=== PATIENT | female | born 1980 | race Caucasian/White ===

== ENCOUNTER → 2016-12-01 | Outpatient (CLI) | payer BC | END | disposition home or self-care (01) | LOC: C.PAPS 13:33 | PROVIDERS: ATTEND Obstetrics & Gynecology | DX: Z01.419 Encounter for gynecological examination (general) (routine) without abnormal findings (principal) ==

== ENCOUNTER → 2017-08-28 | Outpatient (CLI) | payer BC | END | disposition home or self-care (01) | LOC: C.LAB1850 10:45 | PROVIDERS: ATTEND Obstetrics & Gynecology | DX: Z33.1 Pregnant state, incidental (principal); Z34.90 Encounter for supervision of normal pregnancy, unspecified, unspecified trimester ==

== ENCOUNTER → 2017-10-16 | Outpatient (CLI) | payer BC ==
[2017-10-16 13:33] LABS: GTGD 50 Grams
[2017-10-19 15:44] LABS: AFP MULTIPLE OF MEDIAN 0.91; AFPTS GESTATIONAL AGE 15.7 WEEKS; AFPTS INSULIN DEP DIABETIC? NO; AFPTS MATERNAL WT 162 LBS; ALPHA-FETOPROTEIN RACE CAUCASIAN=W; CIGARETTE SMOKER? NOT PROVIDED; EDD DETERMINED BY ULTRASOUND; HISTORY OF NTD NO; REPEAT SAMPLE? NO
== END | disposition home or self-care (01) ==
LOC: C.LAB1850 10:58
PROVIDERS: ATTEND Obstetrics & Gynecology
DX: Z34.82 Encounter for supervision of other normal pregnancy, second trimester (principal)

== ENCOUNTER → 2018-01-10 | Outpatient (CLI) | payer OTHER | END | disposition home or self-care (01) | LOC: C.LABSPEC 11:34 | PROVIDERS: ATTEND Obstetrics & Gynecology | DX: Z34.83 Encounter for supervision of other normal pregnancy, third trimester (principal) ==

== ENCOUNTER → 2018-01-10 | Outpatient (CLI) | payer OTHER ==
[2018-01-10 12:22] LABS: HEMATOCRIT 33.6 % (37-47); HEMOGLOBIN 11.7 g/dL (12.0-16.0)
== END | disposition home or self-care (01) ==
LOC: C.LAB1850 09:47
PROVIDERS: ATTEND Obstetrics & Gynecology
DX: Z34.83 Encounter for supervision of other normal pregnancy, third trimester (principal)

== ENCOUNTER → 2018-03-07 | Outpatient (CLI) | payer OTHER | END | disposition home or self-care (01) | LOC: C.LABSPEC 10:49 | PROVIDERS: ATTEND Obstetrics & Gynecology | DX: O09.523 Supervision of elderly multigravida, third trimester (principal) ==

== ENCOUNTER 2018-04-08 19:37 | Outpatient (CLI) | payer OTHER ==
[~2018-04-08] VITALS: Ht 175.3 cm; Wt 90.0 kg
[2018-04-08] MEDS ORDERED: PRENTAB26 PO (20:31)
[2018-04-08 20:32] VITALS: Ht 175.3 cm; Wt 90.0 kg
[2018-04-11] MEDS ORDERED: OXYC-57 PO (17:18)
[2018-04-11] MEDS ORDERED: MTR600X PO (17:18)
[2018-04-12] MEDS ORDERED: OXYC-57 PO (11:23)
== END 2018-04-08 21:25 | disposition home or self-care (01) ==
LOC: C.OPB 19:37 → C.LD 19:37 → C.OPB 21:25
PROVIDERS: ATTEND Obstetrics & Gynecology
DX: O48.0 Post-term pregnancy (principal); O09.523 Supervision of elderly multigravida, third trimester; O34.43 Maternal care for other abnormalities of cervix, third trimester; Z3A.41 41 weeks gestation of pregnancy

== ENCOUNTER 2020-06-11 07:01 | Inpatient (IN) ==
--- NOTE | 2020-06-10 17:02 | History & Physical Report ---
Date of Service June 10, 2020 Assessment & Plan (1) Supervision of elderly multigravida: IUP at 39 weeks with prior C/S done emergently at 41 weeks because of bradycardia & brow presentation requesting repeat C/S . The procedure and it's risks were discussed in detail with the patient and her and all questions were answered to their satisfaction. History of Present Illness Primary Care Provider: Nimo Michel MD Patient is a 40 yo white female who presents at 39 weeks for repeat C/S. she had a normal with her first then an emergency C/S with her second baby because of brow position, and subsequent bradycardia. She needed a blood transfusion after the section so would like to do a repeat C/S electively. is complicated by + Rosalba antibodies but her is negative for [place]. Growth scans show LGA baby with 97%tile at 36 weeks. Her other babies were also large. NST's have been reactive. Allergies Allergy/AdvReac Type Severity Reaction Status Date / Time No Known Drug Allergies Allergy Verified 06/10/20 09:37 Home Medications Home Medications Medication Instructions Recorded Confirmed Type prenat.vits,mark,ees-[id number] 1 tab PO QAM 07/15/19 06/10/20 History Patient History Medical History Asthma childhood Encounter for anatomic survey Surgical History History of tooth extraction wisdom teeth Hx of section had blood transfusion and platelets 2018 now has positive antibodies Family History Mother FH: malignant neoplasm of thyroid Father Transient ischemic attack Uncle Diabetes Grandmother Breast cancer QA LEAD Ovarian cancer QA LEAD Denies family history of Colorectal cancer Social History Smoking Status: Never smoker Second Hand Exposure: No; Hx Alcohol Use: No Hx Substance Use: No Preferred Language: Frisian Communication Ability: Effective Water Server Required: No Beliefs That Will Affect Care: None marital status: marital status details: Casey López (40) [phone] Current Living Situation: Spouse Current Living Situation Comment: lives with spouse, 2 childen, no pets current occupational status: employed 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 Feels Safe at Home: Yes Childhood Exposure to Second-Hand Smoke: No caffeine: Yes Dental Care, Regularly: Yes Physical Activity Frequency: 3-4 Times per Week Seatbelt Use: always Sunscreen Use: Yes Review of Systems All systems reviewed & are unremarkable except as noted in HPI & below Physical Exam Constitutional: WD/WN, vitals as above Respiratory: normal respiratory effort, lungs clear to auscultation Cardiovascular: RRR, no murmur, no edema Gastrointestinal (Abdomen): normal bowel sounds, soft, nontender, no hepatosplenomegaly Psychiatric: A+Ox3, euthymic affect Genitourinary: OB Exam Abdomen: + fundal height (term), + vertex and + estimated weight (8-9 pounds) OB Exam Monitor Tracing: + external FHT monitor used, + external uterine monitor used, + category I and + normal FHT variability Coding Level of Care Code None Diagnoses Supervision of elderly multigravida O09.529
[~2020-06-11 07:01] MED LIST: CEFAZOLIN 2000MG 2,000 MG/15 ML SYR IV SCH
[2020-06-11] MEDS ORDERED: LACTATED RINGER'S 1,000 ML IV SCH ×3 (07:15→12:14)
[2020-06-11 07:19] LABS: Basophils # (auto) 0.01 K/uL (0-0.2); Basophils % (auto) 0.1 %; Eosinophils # (auto) 0.03 K/uL (0-0.5); Eosinophils % (auto) 0.4 %; Hematocrit (blood only) 33.9 % (37-47); Hemoglobin 11.1 g/dL (12.0-16.0); Immature Granulocytes # (auto) 0.02 K/uL (0.00-0.02); Immature Granulocytes % (auto) 0.3 %; Lymphocytes # (auto) 1.47 K/uL (1.2-3.4); Lymphocytes % (auto) 21.5 %; Mean Corpuscular Hemoglobin 29.2 pg (25-34); Mean Corpuscular Volume 89.2 fL (80-100); Mean Platelet Volume 10.6 fL (7.4-10.4); Monocytes # (auto) 0.51 K/uL (0.11-0.59); Monocytes % (auto) 7.4 %; Neutrophils # (auto) 4.81 K/uL (1.4-6.5); Neutrophils % (auto) 70.3 %; Platelet Count 112 K/uL (130-400); RDW Coefficient of Variation 13.6 % (11.5-14.5); RDW Standard Deviation 44.3 fL (36.4-46.3); White Blood Count 6.85 K/uL (4.8-10.8)
[2020-06-11 07:22] LABS: Mean Corpuscular Hgb Conc 32.7 g/dL (32-36)
[2020-06-11] MEDS ORDERED: CITRIC ACID/SODIUM CITRATE 15 ML UDC PO SCH (09:33)
[2020-06-11] MEDS ORDERED: OXYTOCIN 10 UNITS/ML VIAL ONE (10:37)
[2020-06-11] MEDS ORDERED: KETOROLAC 30 MG/ML VIAL ONE (10:37)
[2020-06-11] MEDS ORDERED: fentaNYL citrate 100 MCG/2 ML VIAL ONE (10:37)
[2020-06-11] MEDS ORDERED: ONDANSETRON INJ 2 MG/ML 2 ML VIAL ONE (10:37)
[2020-06-11] MEDS ORDERED: MoRPHine SULFATE PF 1 MG/ML 10 ML AMP/VIAL ONE (10:37)
[2020-06-11] MEDS ORDERED: LACTATED RINGER'S 500 ML IV PRN (11:24)
[2020-06-11] MEDS ORDERED: PROMETHAZINE HCL 6.25 MG in SODIUM CHLORIDE 0.9% 50 ML IV PRN (11:24)
[2020-06-11] MEDS ORDERED: MoRPHine SULFATE PF 1 MG/ML 10 ML AMP/VIAL INT SPINAL ONE (11:24)
[2020-06-11] MEDS ORDERED: NALOXONE HCL 0.08 MG in SYRINGE 1.8 ML IV PRN (11:24)
[2020-06-11] MEDS ORDERED: ONDANSETRON INJ 2 MG/ML 2 ML VIAL IV PRN (11:24)
[2020-06-11] MEDS ORDERED: HYDROmorphone INJ 0.5 MG/0.5 ML SYR IV PRN (11:24)
[2020-06-11] MEDS ORDERED: MoRPHine SULFATE 2 MG/ML CARP IV PRN (11:24)
[2020-06-11] MEDS ORDERED: NALOXONE HCL 0.4 MG/1 ML VIAL/CARP IV PRN (11:24)
[2020-06-11] MEDS ORDERED: NALOXONE HCL 1 MG in SODIUM CHLORIDE 0.9% 1000ML 1,000 ML IV PRN (11:24)
[2020-06-11] MEDS ORDERED: DiphenhydrAMINE HCL 50 MG/ML VIAL IV PRN (11:24)
[2020-06-11] MEDS ORDERED: ePHEDrine sulfate 50 MG/ML AMP IV PRN (11:24)
--- NOTE | 2020-06-11 11:24 | Anesthesiology Consultation ---
Date of Service June 11, 2020 Assessment & Plan (1) Encounter for pre-operative examination: Chart Review Chart Review: Acceptable Risk for Surgery and Patient NOT seen in Pre Admission Testing Consults Requested none ASA ASA2 Proposed Anesthesia Anesthesia Type: Spinal (+intrathecal narcotics) Risk / Benefits Reviewed With: PT / POA / Parent / Guardian, Accepts Plan and Informed Consent Obtained History Surgery Operation Date: 06/11/20 08:50 Proposed Procedures p Section in LD - Lorena Schaefer MD, FACOG Height/Weight Height: 5 ft 9 in Weight: 87.543 kg Allergies Allergy/AdvReac Type Severity Reaction Status Date / Time No Known Drug Allergies Allergy Unknown Verified 06/11/20 07:23 Medications Home Medications Medication Instructions Recorded Confirmed Last Taken prenat.vits,mark,enw-zvep-zhmvt 1 tab PO QAM 07/15/19 06/11/20 06/10/20 Active Medications Generic Name Dose Route Start Last Admin Trade Name Freq PRN Reason Stop Dose Admin Cefazolin Sodium 2,000 mg in 15 mls @ 3.75 mls/min 06/11/20 06:00 06/11/20 10:36 Ancef 2000mg IV 06/11/20 15:00 3.75 mls/min PREOP MATT Administration Lactated Ringer's 1,000 mls @ 125 mls/hr 06/11/20 09:15 06/11/20 09:00 Lr IV 07/11/20 09:14 125 mls/hr .Q8H MATT Administration NPO Date Last Intake of Fluids: 06/10/20 Time Last Intake of Fluids: 22:30 Date Last Intake of Solids: 06/10/20 Time Last Intake of Solids: 19:00 Past Medical History Medical History Asthma childhood Encounter for anatomic survey Exercise / Class Metabolic Activity II 4-5 Yardwork/Stairs/Walk up hill Past Family History Family History Mother FH: malignant neoplasm of thyroid Father Transient ischemic attack Uncle Diabetes Grandmother Breast cancer [employer] Ovarian cancer [employer] SUPERVISOR Denies family history of Colorectal cancer Past Surgical History Surgical History H/O reconstruction of anterior cruciate ligament tear History of tooth extraction wisdom teeth Hx of section had blood transfusion and platelets 2018 now has positive antibodies Past Anesthesia History No Hx of Anesthesia Complications and No Family Hx of Anesthesia Complications History of PONV No Hx of PONV and No Hx of Motion Sickness Social History Smoking Status: Never smoker Do You Dip or Chew Tobacco: No Hx Alcohol Use: No Hx Substance Use: No substance use type: does not use Physical Exam Vital Signs Last Vital Signs Temp 37 C 06/11/20 07:30 Pulse 61 06/11/20 08:30 Resp 18 06/11/20 07:30 BP 99/67 L 06/11/20 08:30 ENMT Mouth: no dentition abnormality Thyromental Distance: > or= 3.5 Finger Breadths Mallampati Class: II Neck normal visual inspection Respiratory normal respiratory effort Auscultation: lungs clear to auscultation bilaterally Cardiovascular Rate/Rhythm: regular rate and regular rhythm Psychiatric Orientation: alert Testing Laboratory Results 06/11/20 07:10 Blood Type O Positive 06/11/20 07:10 Antibody Screen POSITIVE A 06/11/20 07:10
[2020-06-11] MEDS ORDERED: SODIUM CHLORIDE 0.9% 1000ML 1,000 ML IV SCH (11:30)
[2020-06-11] MEDS ORDERED: NO NARCOTICS OR SEDATIVES SCH (11:30)
[2020-06-11] MEDS ORDERED: DC INTRASPINAL MORPHINE SCH (11:30)
--- NOTE | 2020-06-11 11:44 | Post Operative Brief Note ---
PG Immediate Post Op with CF Date of Surgery June 11, 2020 Pre & Post Diagnosis Operation Date: 06/11/20 08:50 Pre-Op Diagnosis: Intrauterine at 39 4/7 weeks gestation. Previous section, desires sterilization Post-Op Diagnosis: same I identified the patient and participated in the time-out.: Yes Procedure Operation Date: 06/11/20 08:50 Actual Procedures p Repeat section with tubal ligation for living male child at 1107(Bilateral) - Lorena Schaefer MD, FACOG Surgeon Lorena Schaefer MD, FACOG Program Advisor Misa Horvath MD & Rasheed Stanley MD Estimated Blood Loss 500 Findings Consistent with Post-Op Diagnosis Specimens Specimen Description: portions of fallopian tubes bilaterally Drains Martinez Catheter (martinez inserted following spinal without difficulty. Martinez draining clear yellow urine and urine output to be monitored by anesthesia intr aoperatively) Anesthesia Type Spinal Disposition Accompanied Patient To Recovery: Yes Disposition: L&D
[2020-06-11] MEDS ORDERED: HYDROCORTISONE ACETATE 25 MG SUPP PR PRN (12:14)
[2020-06-11] MEDS ORDERED: DIPHTHERIA/TETANUS/PERTUSSIS 0.5 ML SYR/VIAL IM ONE (12:14)
[2020-06-11] MEDS ORDERED: SUPERCREAM 0.870% 15 GM JAR EXT PRN (12:14)
[2020-06-11] MEDS ORDERED: SENNA 8.6 MG TAB PO PRN (12:14)
[2020-06-11] MEDS ORDERED: BENZOCAINE 20% AER SPR 82.5 GM CAN EXT PRN (12:14)
[2020-06-11] MEDS: OXYTOCIN 20 UNITS in LACTATED RINGER'S 1,000 ML IV SCH ×2 (12:36→20:37)
--- NOTE | 2020-06-11 13:02 | History & Physical Bridge Note ---
Date of Service June 11, 2020 History & Physical Bridge Note I have examined the patient, reviewed the History & Physical and in the interval since the performance of the History & Physical I have noted the following changes of clinical significance: no changes noted
--- NOTE | 2020-06-11 15:46 | Anesthesiology Progress Note ---
Date of Service June 11, 2020 Anesthesia Post Procedure Vital Signs Vital Signs: Temp Pulse Resp BP Pulse Ox 06/11/20 15:44 62 98 06/11/20 15:43 58 L 92 06/11/20 15:39 58 L 100 06/11/20 15:34 57 L 100 06/11/20 15:29 52 L 100 06/11/20 15:24 52 L 98 06/11/20 15:22 55 L 97/53 L 06/11/20 15:21 36.5 C 18 99 06/11/20 15:19 53 L 99 06/11/20 15:14 56 L 99 06/11/20 15:09 54 L 100 06/11/20 15:04 57 L 99 06/11/20 14:59 58 L 100 06/11/20 14:54 53 L 99 06/11/20 14:49 56 L 100 06/11/20 14:44 49 L 100 06/11/20 14:39 50 L 100 06/11/20 14:34 51 L 100 06/11/20 14:29 51 L 100 06/11/20 14:24 57 L 100 06/11/20 14:23 60 82 L 06/11/20 14:19 55 L 100 06/11/20 14:14 59 L 99 06/11/20 14:13 56 L 90 06/11/20 14:11 52 L 105/69 06/11/20 14:09 53 L 100 06/11/20 14:04 55 L 100 06/11/20 13:59 55 L 100 06/11/20 13:57 58 L 91 06/11/20 13:54 54 L 99 06/11/20 13:50 36.4 C L 59 L 14 99 06/11/20 13:49 60 99 06/11/20 13:44 60 100 06/11/20 13:39 63 100 06/11/20 13:34 58 L 100 06/11/20 13:29 57 L 100 06/11/20 13:24 58 L 99 06/11/20 13:23 60 100 06/11/20 13:21 53 L 102/70 06/11/20 13:20 53 L 16 102/70 06/11/20 13:18 53 L 106/70 100 06/11/20 13:13 57 L 99 06/11/20 13:08 56 L 100/67 99 06/11/20 13:03 51 L 98 06/11/20 12:58 55 L 108/68 99 06/11/20 12:55 60 93 06/11/20 12:53 58 L 100 06/11/20 12:50 36.6 C 60 16 103/69 93 06/11/20 12:49 59 L 103/69 06/11/20 12:48 60 98 06/11/20 12:43 55 L 100 06/11/20 12:40 57 L 14 118/68 93 06/11/20 12:38 55 L 118/68 100 06/11/20 12:33 57 L 100 06/11/20 12:30 57 L 16 100 06/11/20 12:28 54 L 103/72 100 06/11/20 12:23 55 L 100 06/11/20 12:20 55 L 12 107/70 100 06/11/20 12:18 55 L 107/70 100 06/11/20 12:13 55 L 100 06/11/20 12:10 56 L 18 112/69 100 06/11/20 12:08 56 L 99 06/11/20 12:03 61 99 06/11/20 12:02 60 91 06/11/20 12:00 56 L 20 112/69 06/11/20 11:59 56 L 99/65 L 06/11/20 11:58 59 L 100 06/11/20 11:53 54 L 100 06/11/20 11:50 36.5 C 16 06/11/20 11:48 62 106/66 100 06/11/20 08:30 61 99/67 L 06/11/20 07:34 62 93/63 L 06/11/20 07:30 37 C 18 Transfer of Care Handoff Completed per policy Notes Mental Status: alert / awake / arousable Patient Amnestic to Procedure: Yes Nausea / Vomiting: adequately controlled Pain: adequately controlled Airway Patency, RR, SpO2: stable & adequate BP & HR: stable & adequate Hydration State: stable & adequate Neuraxial Anesthesia: was administered and sensory block is resolving Anesthetic Complications: no major complications apparent
--- NOTE | 2020-06-11 16:42 | Operative Report (OR) ---
DATE OF OPERATION: 06/11/2020 SURGEON: Dr. Lorena Stewart. ASSISTANTS: Dr. Misa Horvath and Dr. Richmond Stanley. PREOPERATIVE DIAGNOSES: Intrauterine at 39 weeks, prior section, requesting repeat section and permanent sterilization. POSTOPERATIVE DIAGNOSES: Intrauterine at 39 weeks, prior section, requesting repeat section and permanent sterilization; delivery of a viable male , 9 pounds 15.4 ounces, Apgars 9 and 9. PROCEDURE: Repeat low transverse section and bilateral modified [place] tubal ligation. ANESTHESIA: Subarachnoid block. BLOOD LOSS: 500 mL. HISTORY: The patient is a 40-year-old 3, para 2-0-0-2 white female who presents at 39 weeks for repeat section. She had normal vaginal delivery with her first , but then she had an emergency section with her second after there was persistent bradycardia in a brow presentation. She is requesting a repeat section this time and she is also requesting permanent sterilization. She understands the risks of the procedure including the risk for future pregnancies, both ectopic and intrauterine, and she is willing to proceed. GROSS FINDINGS: The uterus was noted to be gravid, term in size. Bilateral ovaries and fallopian tubes were grossly normal. The bladder was adherent somewhat high on the anterior surface of the uterus upon entering the abdomen. DESCRIPTION OF PROCEDURE: After the patient received adequate subarachnoid block, she was prepped and draped in the usual sterile fashion. The prior incision was entered with the scalpel and carried to the fascia with the same scalpel. The fascial incision was then extended with Slaughter scissors. The edges were then grasped with Tyler clamps and the underlying rectus muscles bluntly and sharply dissected off of the overlying fascia. The peritoneum was then entered bluntly and the bladder was then also taken down off the anterior surface of the uterus with blunt and sharp dissection and placed behind the bladder blade. It was still somewhat adherent high on the uterine lower segment. An incision was made in the uterus superior to this well away from the bladder flap. This was extended transversely. Membranes were ruptured for clear fluid. The was delivered from the vertex presentation with moderate fundal pressure. Mouth and nasopharynx were suctioned upon delivery. The rest of the was delivered and was spontaneously crying and moving all 4 limbs. The cord was clamped and cut, and the infant was handed off to Dr. Graham, the physical science technician who was in attendance at the delivery. The placenta was then manually removed. The uterus was exteriorized and covered with a clean lap sponge. Uterine cavity was then explored and found to be free of any placental tissue, some retained membranes were removed near the cervical os. The uterus was then closed in a running locking imbricating fashion in 1 layer. Bleeding at the left corner of the incision was secured with a [id number] stitch of 0 Monocryl. At this point, hemostasis was noted to be excellent. Attention was then turned to the tubal. The right fallopian tube was identified and followed to its fimbriated end. It was then grasped on the mid portion with a Castine clamp. The knuckle of tube was developed with a tie of 3-0 plain catgut. A second free tie of 3-0 plain catgut was used to reinforce the first. The knuckle of tube was removed and the cut edges of the fallopian tubes were cauterized with the Bovie. The left fallopian tube was identified and followed to its fimbriated end. It too was grasped in the mid portion with a Castine clamp. A knuckle of tube was developed with a suture ligature of 3-0 plain catgut. This was followed by a free tie of the same. The knuckle of tube was removed and again the cut surfaces of the tube were cauterized with the Bovie. Hemostasis was noted to be excellent in both tubal sites. The uterus was placed gently back in the peritoneal cavity. Prior to doing this, the posterior cul-de-sac was irrigated with normal saline. The uterine incision was examined once more after it was back in the peritoneal cavity and several bleeding sites along the serosa were cauterized with the Bovie. At this point, hemostasis was noted to be excellent. The gutters were explored and found to be free of any clot or fluid. The tubal sites were also examined and continued to have excellent hemostasis. The fascia was then closed in a running fashion with 0 Vicryl. After irrigating the adipose layer, the skin edges were reapproximated using a subcuticular stitch of 3-0 Vicryl. Urine was clear at the end of the case. The patient tolerated the procedure well and was stable upon arrival back in the labor/delivery room. I attest to the content of the Intraoperative Record and any orders documented therein. Any exception s are noted below.
[2020-06-11] MEDS: KETOROLAC 30 MG/ML VIAL IV PRN (17:17)
[2020-06-11] MEDS: DOCUSATE SODIUM 100 MG CAP PO SCH (20:37)
[2020-06-12] MEDS: KETOROLAC 30 MG/ML VIAL IV PRN (03:30)
[2020-06-12] MEDS ORDERED: ONDANSETRON INJ 2 MG/ML 2 ML VIAL IV PRN (05:25)
[2020-06-12] MEDS ORDERED: DiphenhydrAMINE HCL 50 MG/ML VIAL IV PRN (05:25)
[2020-06-12] MEDS ORDERED: PROMETHAZINE HCL 25 MG in SODIUM CHLORIDE 0.9% 50 ML IV PRN (05:25)
[2020-06-12] MEDS ORDERED: OXYCODONE/ACETAMINOPHEN 5mg/325mg TAB PO PRN (05:25)
[2020-06-12] MEDS ORDERED: KETOROLAC 30 MG/ML VIAL IV PRN (05:25)
[2020-06-12] MEDS ORDERED: CITRIC ACID/SODIUM CITRATE 15 ML UDC PO SCH ×2 (06:00)
[2020-06-12 06:57] LABS: Basophils # (auto) 0.01 K/uL (0-0.2); Basophils % (auto) 0.1 %; Eosinophils # (auto) 0.02 K/uL (0-0.5); Eosinophils % (auto) 0.2 %; Hematocrit (blood only) 32.5 % (37-47); Hemoglobin 10.9 g/dL (12.0-16.0); Immature Granulocytes # (auto) 0.03 K/uL (0.00-0.02); Immature Granulocytes % (auto) 0.3 %; Lymphocytes # (auto) 0.84 K/uL (1.2-3.4); Lymphocytes % (auto) 8.6 %; Mean Corpuscular Hemoglobin 29.6 pg (25-34); Mean Corpuscular Hgb Conc 33.5 g/dL (32-36); Mean Corpuscular Volume 88.3 fL (80-100); Mean Platelet Volume 10.4 fL (7.4-10.4); Monocytes % (auto) 5.1 %; Neutrophils # (auto) 8.33 K/uL (1.4-6.5); Neutrophils % (auto) 85.7 %; Platelet Count 114 K/uL (130-400); RDW Coefficient of Variation 13.7 % (11.5-14.5); RDW Standard Deviation 43.6 fL (36.4-46.3); Red Blood Count 3.68 M/uL (4.2-5.4); White Blood Count 9.73 K/uL (4.8-10.8)
--- NOTE | 2020-06-12 08:00 | Obstetrical Progress Note ---
Date of Service June 12, 2020 Assessment & Plan (1) Encounter for care and examination after delivery: good post-op progress continue current care plan Subjective Ambulation: ambulating normally Voiding: no voiding problems Passing Gas:: Yes Diet Tolerance:: regular diet Lochia:: Moderate Feeding Type:: breast feeding Review of Systems All systems reviewed & are unremarkable except as noted in HPI & below Physical Exam Constitutional WD/WN, vitals as above Gastrointestinal (Abdomen) normal bowel sounds, soft, nontender, no hepatosplenomegaly Inspection/Auscultation: abdomen normal to inspection and + abdominal surgical incision (intact & dry- no cellulitis); abdomen not distended Psychiatric A+Ox3, euthymic affect Genitourinary OB Exam Abdomen: + fundal height Fundus: + firm and + relation to umbilicus (at U) Results & Data ([facility]) Vital Signs (Past 12 Hours) Vital Signs Resp Pulse Ox 06/12/20 03:15 16 97 06/12/20 02:00 18 98 06/12/20 01:00 16 97 06/11/20 23:57 18 97 06/11/20 23:30 16 98 06/11/20 22:10 20 97 06/11/20 21:10 20 97 06/11/20 20:10 20 95
[2020-06-12] MEDS: DOCUSATE SODIUM 100 MG CAP PO SCH ×2 (08:50→21:05)
[2020-06-12] MEDS: PRENATAL VITAMIN 1 TAB PO SCH (08:50)
[2020-06-12] MEDS ORDERED: bisacodyL 10 MG SUPP PR ONE (16:15)
[2020-06-12] MEDS: IBUPROFEN 600 MG TAB PO PRN (19:24)
[2020-06-12] MEDS ORDERED: bisacodyL 5 MG TABEC PO SCH (20:00)
[2020-06-13] MEDS: IBUPROFEN 600 MG TAB PO PRN ×5 (03:35→23:52)
[2020-06-13 06:43] LABS: Hematocrit (blood only) 27.1 % (37-47); Hemoglobin 9.1 g/dL (12.0-16.0)
--- NOTE | 2020-06-13 07:11 | Obstetrical Progress Note ---
Date of Service June 13, 2020 Assessment & Plan (1) S/P section: Patient doing well. Routine pp/postop care. Day #:: 2 Subjective Ambulation: ambulating normally Voiding: no voiding problems Passing Gas:: Yes Diet Tolerance:: regular diet Lochia:: Small Feeding Type:: breast feeding Pain controlled. Trying to stick to ibuprofen. Physical Exam Constitutional WD/WN, vitals as above Cardiovascular Extremities: no calf tenderness and no edema Gastrointestinal (Abdomen) soft, nt , nd ff/nt at u incision c/d/i Psychiatric A+Ox3, euthymic affect Results & Data ([facility]) Vital Signs (Past 12 Hours) Vital Signs Temp Pulse Resp BP Pulse Ox 06/12/20 23:00 37.0 C 72 18 113/73 98
[2020-06-13] MEDS: MAGNESIUM HYDROXIDE SUSP 30 ML UDC PO PRN (08:23)
[2020-06-13] MEDS: PRENATAL VITAMIN 1 TAB PO SCH (08:23)
[2020-06-13] MEDS: DOCUSATE SODIUM 100 MG CAP PO SCH ×2 (08:23→19:28)
[2020-06-13] MEDS ORDERED: bisacodyL 10 MG SUPP PR PRN ×2 (11:35→16:12)
[2020-06-14] MEDS: IBUPROFEN 600 MG TAB PO PRN ×2 (05:52→12:10)
--- NOTE | 2020-06-14 06:46 | Obstetrical Progress Note ---
Date of Service <Kashif Rodgers MD - Last Filed: 06/14/20 07:33> June 14, 2020 Assessment & Plan <Kashif Rodgers MD - Last Filed: 06/14/20 07:33> (1) S/P section: - Feels well today. Eating well, voiding well, ambulating well. - Rubella immune. GBS negative. Blood type O+. - Pain well controlled with ibuprofen 600mg Q4H PRN. - Routine post care -- anticipate d/c today Day #:: 3 Subjective <Kashif Rodgers MD - Last Filed: 06/14/20 07:33> Molly is a 40 y/o female ; POD #3 following delivery at 41 weeks; doing well this morning; Minimal abdominal cramping & 1/10 pain well managed on analgesics; voiding without difficulty, no pain with urination; tolerating meals overnight and able to ambulate some. Has some persistent lochia with some improvement this morning. Breast feeding. Review of Systems Denies fever, chills, sweats Denies shortness of breath, difficulty breathing, chest pain, palpitations, chest pressure. Denies breast pain. Denies dysuria. Denies headache. Physical Exam <Kashif Rodgers MD - Last Filed: 06/14/20 07:33> General: Alert, oriented. No acute distress. Cardiac: Regular rate and rhythm, no murmurs/rubs/gallops. Respiratory: Clear to auscultation bilaterally a/p, no wheezes/rales/rhonchi. No increased work of breathing. Symmetrical chest rise. No respiratory distress. Abdomen: Soft, nontender, nondistended. Bowel sounds present. Uterus: Uterine fundus firm, non-tender and palpable 1cm below umbilicus. Surgical scar clean and healing well. Lower Extremities: No lower extremity edema or swelling. No deep calf pain. Barrington's negative bilaterally. Results & Data <Kashif Rodgers MD - Last Filed: 06/14/20 07:33> Vital Signs (Past 12 Hours) Vital Signs Temp Pulse Resp BP Pulse Ox 06/14/20 01:49 36.9 C 63 20 105/67 99 06/13/20 19:20 36.7 C 67 16 122/77 98 <Misa Horvath MD, FACOG - Last Filed: 06/14/20 07:55> Co-Signing Physician Notes Resident Physician Supervision Note: I interviewed and examined the patient. Discussed with Dr. Rodgers and agree with findings and plan as documented in the note. Any exceptions or clarifications are listed here: Doing well. Plan d/c and instructions reviewed. Documented By: Misa Horvath MD, FACOG Resident Activity Tracking <Kashif Rodgers MD - Last Filed: 06/14/20 07:33> Resident Involvement: Resident Care Provided Care Provided: Adult [facility] Medicine
[2020-06-14] MEDS: DOCUSATE SODIUM 100 MG CAP PO SCH (08:27)
[2020-06-14] MEDS: MAGNESIUM HYDROXIDE SUSP 30 ML UDC PO PRN (08:27)
[2020-06-14] MEDS: PRENATAL VITAMIN 1 TAB PO SCH (08:27)
--- NOTE | 2020-06-14 13:05 | Discharge Summary (DS) ---
PRINCIPAL DIAGNOSES: Intrauterine at 39 weeks, prior section repeating, and undesired fertility and multiparity. POSTOPERATIVE DIAGNOSIS: Same plus delivery of a viable male infant, 9 pounds 15 ounces, Apgars 9 and 9. PROCEDURE: Repeat low transverse section and bilateral modified [place] tubal ligation. HISTORY: The patient is a 40-year-old 3, para 2-0-0-2, white female who presented at 39 weeks for repeat section. She had no complications during the surgery and had an uncomplicated postop course, remaining afebrile throughout her hospital stay. She was eating regular diet on her 1st postop day and pain was well controlled with oral pain medication. Hemoglobin on admission was 11.1, hematocrit 33.9. First postop day hemoglobin 10.9, hematocrit 32.5. Second postop day hemoglobin 9.1, hematocrit 27.1. She was sent home in good condition with prescriptions for Percocet 1-2 tablets p.o. q. 4 hours p.r.n. pain, ibuprofen 600 mg p.o. q. 4 hours p.r.n. pain. She is to call for temperature of 101 degrees or higher, heavy vaginal bleeding, burning with urination, increased redness, drainage or pain from her incision, calf tenderness or any other concerns.
== END 2020-06-14 13:15 | disposition home or self-care (01) | DRG 785 ==
LOC: 4S1 07:01 → EDSTATUS 08:50 → 4S2 16:10